=== PATIENT | female | born 1990 | race Caucasian/White ===

== ENCOUNTER → 2017-01-20 | Outpatient (CLI) | payer OTHER | LOC: CIMAGING 07:09 | PROVIDERS: ATTEND Family Medicine | DX: N83.291 Other ovarian cyst, right side (principal); N20.0 Calculus of kidney | CPT/HCPCS: 76700-PO; 76856-PO ==

== ENCOUNTER → 2017-03-10 | Outpatient (CLI) | payer OTHER | LOC: CIMAGING 07:10 | PROVIDERS: ATTEND Family Medicine | DX: N83.202 Unspecified ovarian cyst, left side (principal); N94.89 Other specified conditions associated with female genital organs and menstrual cycle | CPT/HCPCS: 76856-PO ==

== ENCOUNTER 2017-08-18 13:37 | Emergency (ER) | payer OTHER ==
[2017-08-18 13:47] VITALS: BP 140/76; PULSE 70; RESP 16; TEMP 97.9; O2SAT 98
--- NOTE | 2017-08-18 13:58 | CPEKG ---
Heart Rate: 69 RR Interval: 870 P-R Interval: 132 QRSD Interval: 88 QT Interval: 404 QTC Interval: 433 P [place]: 69 QRS [place]: 74 T Wave [place]: 48 EKG Severity - NORMAL ECG - EKG Impression: SINUS RHYTHM Electronically Signed By: Nigel Dia 19-Aug-2017 10:58:53
--- NOTE | 2017-08-18 14:09 | EDPHY ---
H & P Stated Complaint: YESTERDAY cp ON/OFF TODAY CONSTANT. Time Seen by Provider: 08/18/17 13:45 HPI/ROS: CHIEF COMPLAINT: Chest pain History by patient HISTORY OF PRESENT ILLNESS: 19-year-old woman with no past medical history presents complaining of achy anterior chest wall pain as well as intermittent episodes of sharp stabbing pain which last a few seconds. Symptoms began yesterday while she was sitting on the couch reading and then resolved spontaneously. They are not exertional. The achiness lasts longer than the stabbing pain. She currently has this pain and describes it as 4/10 and she considers at mild. She woke up this morning she was feeling fine and the symptoms had resolved but then around mid day they recurred while she was making a sandwich because the achiness persisted she decided to seek medical attention. It is not associated any shortness of breath but she feels like sometimes it is difficult to get a full breath in. There is no pleuritic chest pain. She has no fever, chills, nausea vomiting, diaphoresis or cough. There is no palpitations or heart racing symptoms. She sometimes feels slightly dizzy when she tries to stand up too quickly. There has been no syncopal episodes. She tried taking Tylenol with minimal relief. Pain is not positional or worsened by movement. She feels like it is worse or more noticeable when she is laying down, but is not relieved by sitting up. There is no associated leg pain or swelling. Patient does not smoke. She has an IUD but does not take any systemic hormones. She has a grandparents who had heart disease. She denies any cocaine or methamphetamine use. REVIEW OF SYSTEMS: As in HPI, and all other systems reviewed and are negative Source: Patient - Personal History LMP (Females 10-55): IUD In Place Current Tetanus Diphtheria and Acellular Pertussis (TDAP): Yes - Medical/Surgical History Hx Asthma: No Hx Chronic Respiratory Disease: No Hx Diabetes: No Hx Cardiac Disease: No Hx Renal Disease: No Hx Cirrhosis: No Hx Alcoholism: No Hx HIV/AIDS: No Hx Splenectomy or Spleen Trauma: No Other PMH: Csection - Social History Smoking Status: Never smoked - Physical Exam Exam: General Appearance: Alert, well appearing, speaking full sentences in no respiratory distress. Head: normocephalic, atraumatic Eyes: Pupils equal and round, reactive to light, no pallor or injection. Mouth: Mucous membranes moist. Respiratory: Normal, effort, lungs are clear to auscultation. No wheezes, rales or rhonchi. Cardiovascular: Regular rate and rhythm. S1, S2, no murmurs, gallops or rubs appreciated, positive tenderness along the left sternal border the reproduces her symptoms Gastrointestinal: Abdomen is soft and nontender, no masses, bowel sounds normal. Back: No CVA tenderness, no bony tenderness Neurological: Awake, alert and oriented x 3, no pronator drift, normal gait, no pronator drift Skin: Warm and dry, no rashes. Musculoskeletal: No deformities or tenderness. Extremities: full range of motion, no edema, no tenderness, DP2+ bilat Psychiatric: Patient has normal affect, there is no agitation. Constitutional: Initial Vital Signs Temperature (C) 36.6 C 08/18/17 13:44 Heart Rate 70 08/18/17 13:44 Respiratory Rate 16 08/18/17 13:44 Blood Pressure 140/76 H 08/18/17 13:44 O2 Sat (%) 98 08/18/17 13:44 O2 Delivery Mode Room Air Allergies/Adverse Reactions: No Known Allergies Allergy (Unverified 08/18/17 13:43) Home Medications: Medication Instructions Recorded NK [No Known Home Meds] 08/18/17 Medical Decision Making - Diagnostics EKG Interpretation: Normal sinus rhythm at a rate of 69 with normal axis, normal intervals and no ST segment abnormalities no evidence of acute ischemia. No evidence of WPW or Brugada syndrome. Impression: Normal EKG ED Course/Re-evaluation: 27-year-old woman with no past medical history presents complaining of chest pain with notable chest wall tenderness. ECG is unremarkable. There is no evidence of arrhythmia or ischemia at this time. I suspect costochondritis given the patient's chest wall tenderness. We will give her a trial of ibuprofen I recommend follow up with her primary care physician if her symptoms persist. We discussed return to the ER precautions. Departure - Departure Disposition: Home, Routine, Self-Care Clinical Impression: Chest pain Qualifiers: Chest pain type: unspecified Qualified Code(s): R07.9 - Chest pain, unspecified Condition: Good Instructions: Costochondritis (ED) Additional Instructions: You were seen by Dr. Janet Walters today. Try ibuprofen 600 mg 4 times a day while awake. Follow up with her primary care physician symptoms do not resolve. Return to the meat department if you get worse, have difficulty breathing, develops fever or other new worsening or concerns. Return for any worsening or new concerns. Referrals: Katie Monsivais, [Primary Care Provider] - As per Instructions
== END 2017-08-18 14:10 | disposition home or self-care (01) ==
LOC: CED 13:37
DX: R07.9 Chest pain, unspecified (principal)